=== PATIENT | female | born 1990 | race Caucasian/White ===

== ENCOUNTER 2024-03-15 15:43 | Emergency (ER) | payer MEDICAID ==
[~2024-03-15] VITALS: Ht 175.3 cm; Wt 142.9 kg
[2024-03-15] MEDS ORDERED: ketorolac tromethamine 15mg/ml inj. IV ONE (16:15)
[2024-03-15] MEDS ORDERED: ketorolac trometh. 30mg/ml inj. IV ONE (16:20)
[2024-03-15] MEDS: metoclopramide 5 mg/ml inj IV ONE (17:34)
[2024-03-15] MEDS: magnesium 2GM in 50ml NS 50 ML IV ONE (17:35)
[2024-03-15] MEDS: diphenhydrAMINE 50 mg/ml inj IV ONE (17:35)
[2024-03-15] MEDS ORDERED: SUMA25TA35 PO (18:08)
[2024-03-15] MEDS: ketorolac tromethamine 15mg/ml inj. IV ONE (18:14)
[2024-03-15 18:36] VITALS: BP 139/92; PULSE 65; RESP 16; TEMP 97.8; O2SAT 98
== END 2024-03-15 18:41 | disposition home or self-care (01) ==
LOC: ER 15:43
DX: G43.909 Migraine, unspecified, not intractable, without status migrainosus (principal); H57.10 Ocular pain, unspecified eye; Z72.89 Other problems related to lifestyle; Z79.899 Other long term (current) drug therapy
CPT/HCPCS: 96365; 96375; 99284; J1200; J1885; J2765; J3475

== ENCOUNTER 2025-03-23 16:45 | Emergency (ER) | payer MEDICAID ==
[~2025-03-23] VITALS: Ht 172.7 cm; Wt 158.4 kg
[2025-03-23] MEDS ORDERED: IBUP-864 PO (19:16)
[2025-03-23 19:34] VITALS: BP 158/74; PULSE 60; RESP 18; TEMP 98.6; O2SAT 99
== END 2025-03-23 19:43 | disposition home or self-care (01) ==
LOC: ER 16:46
DX: S76.802A Unspecified injury of other specified muscles, fascia and tendons at thigh level, left thigh, initial encounter (principal); M25.562 Pain in left knee; X58.XXXA Exposure to other specified factors, initial encounter; Y93.54 Activity, bowling; Y92.89 Other specified places as the place of occurrence of the external cause; Y99.8 Other external cause status
CPT/HCPCS: 29505; 73564; 99283; A6449